=== PATIENT | female | born 1985 | race Caucasian/White ===

== ENCOUNTER 2017-10-09 20:40 | Emergency (ER) | payer SELFPAY ==
[2017-10-09 20:59] VITALS: RESP 22; TEMP 99.4
[2017-10-09] MEDS ORDERED: Albuterol 0.083% Inhal Sol (2.5 mg/3 mL) UD INH STA (21:18)
[2017-10-09] MEDS ORDERED: Albuterol-Ipratrop 3 mg / 0.5 (3 ml) UD INH STA ×3 (21:18→22:15)
[2017-10-09] MEDS ORDERED: Albuterol 0.083% Inhal Sol (2.5 mg/3 mL) UD ONE (21:24)
[2017-10-09] MEDS ORDERED: Albuterol-Ipratrop 3 mg / 0.5 (3 ml) UD ONE ×2 (21:25→22:21)
[2017-10-09 21:33] LABS: BASO # 0.1 K/uL (0.0-0.2); BASO % 0.7 % (0.0-2.0); EOS # 0.4 K/uL (0.0-0.7); EOS % 4.2 % (0.0-4.0); HEMOGLOBIN 13.7 g/dL (12.0-16.0); LYMPH # 1.1 K/uL (1.0-4.3); LYMPH % 12.5 % (20.0-40.0); MEAN CORPUSCULAR HEMOGLOBIN 30.8 pg (27.0-31.0); MEAN CORPUSCULAR HGB CONC 34.6 g/dL (33.0-37.0); MEAN PLATELET VOLUME 8.8 fl (7.2-11.7); MONO # 0.8 K/uL (0.0-0.8); MONO % 9.6 % (0.0-10.0); NEUT # 6.2 K/uL (1.8-7.0); RBC 4.44 Mil/uL (3.80-5.20); RED CELL DISTRIBUTION WIDTH 13.5 % (11.5-14.5); WHITE BLOOD COUNT 8.5 K/uL (4.8-10.8)
[2017-10-09 21:42] LABS: BLOOD UREA NITROGEN 8 mg/dl (7-17); CALCIUM 9.5 mg/dL (8.4-10.2); GFR AFRICAN-AMERICAN > 60; GFR NON-AFRICAN AMERICAN > 60
--- NOTE | 2017-10-09 22:36 | ED PDOC ---
HPI: SOB/CHF/COPD Time Seen by Provider: 10/09/17 20:58 Chief Complaint (Nursing): Shortness Of Breath Chief Complaint (Provider): Shortness Of Breath History Per: Patient History/Exam Limitations: no limitations Onset/Duration Of Symptoms: Days Current Symptoms Are (Timing): Still Present Additional Complaint(s): Destiny Yusuf is a 31 year old female with a past medical history of asthma who is presenting to the ED with complaints of worsening shortness of breath onset yesterday. Patient states that she used Albuterol at home around 7 pm with no relief. Patient reports that these symptoms feel similar to past episodes and that she has a history of admissions for asthma, but no intubations. Last admission was 6 years ago and last steroid use was 2 months ago. She denies any fever, chest pain, ear pain, throat pain, abdominal pain, recent travel, N/V/D, sick contacts. She does indicate that she has seasonal allergies which exacerbate her asthma. LNMP: 09/27/17 PMD: [place] Past Medical History Reviewed: Historical Data, Nursing Documentation, Vital Signs Vital Signs: Last Vital Signs Temp 99.4 F 10/09/17 20:56 Pulse 112 H 10/10/17 04:42 Resp 22 10/09/17 20:56 BP 129/85 10/09/17 23:48 Pulse Ox 96 10/10/17 04:42 - Medical History PMH: Asthma - Surgical History Surgical History: Tonsillectomy (and adenoids) - Family History Family History: States: Unknown Family Hx - Social History Current smoker - smoking cessation education provided: Yes (1-2/day) Alcohol: Social Drugs: Cannabis (2-4x/month) - Home Medications Home Medications: Ambulatory Orders Medication Instructions Recorded Nitrofurantoin Macrocrystals 100 mg PO BID #14 cap 09/24/15 [Macrobid] Albuterol Sulfate [Ventolin Hfa] 1 puff IH Q4 #1 each 10/09/17 Prednisone [Deltasone] 40 mg PO DAILY #10 tablet 10/09/17 Promethazine/Dextromethorphan 5 ml PO Q6 PRN #150 ml 10/09/17 [Promethazine-Dm Syrup] - Allergies Allergies/Adverse Reactions: Allergies Allergy/AdvReac Type Severity Reaction Status Date / Time No Known Allergies Allergy Verified 09/24/15 18:19 Review of Systems ROS Statement: Except As Marked, All Systems Reviewed And Found Negative Constitutional: Negative for: Fever ENT: Negative for: Ear Pain, Throat Pain Cardiovascular: Negative for: Chest Pain Respiratory: Positive for: Shortness of Breath Gastrointestinal: Negative for: Nausea, Vomiting Physical Exam - Reviewed Nursing Documentation Reviewed: Yes Vital Signs Reviewed: Yes - Physical Exam Appears: Positive for: Well, Non-toxic Head Exam: Positive for: ATRAUMATIC, NORMOCEPHALIC Skin: Positive for: Normal Color, Warm, DRY ENT: Positive for: Pharynx Is (clear, uvula midline), TM Is/Are (nonbulging, nonerythematous bilaterally). Negative for: Pharyngeal Erythema, Other (nasal flaring) Neck: Positive for: Painless ROM, Supple Cardiovascular/Chest: Positive for: Regular Rate, Rhythm. Negative for: Murmur Respiratory: Positive for: Decreased Breath Sounds (bilaterally), Wheezing ( inspiratory and expiratory), Respiratory Distress (mild; labored breathing), Other (speaking full sentences). Negative for: Stridor Gastrointestinal/Abdominal: Positive for: Soft. Negative for: Tenderness, Mass , Distended, Guarding Back: Negative for: L CVA Tenderness, R CVA Tenderness Extremity: Positive for: Normal ROM. Negative for: Calf Tenderness, Deformity Neurologic/Psych: Positive for: Alert, Oriented (x3), Gait (steady in ED). Negative for: Motor/Sensory Deficits, Aphasia, Facial Droop - Laboratory Results Result Diagrams: 10/09/17 21:29 10/09/17 21:29 Urine POC: Negative - ECG ECG Rhythm: Positive for: Normal QRS, Normal ST Segment, Sinus Tachycardia Interpretation Of ECG: QTC 439 Rate: 112 O2 Sat by Pulse Oximetry: 96 (RA) Pulse Ox Interpretation: Normal Medical Decision Making Medical Decision Making: Time: 21:29 Impression: shortness of breath, asthma exacerbation Plan: --BMP --Magnesium level --Urine --CBC --Albuterol 2.5 mg INH x1 --Duoneb 3 ml INH x3 --Solu-Medrol --Peak Flow Pre/Post Tx 2325 On re-evaluation, patient resting comfortably and reports resolution of shortness of breath and dyspnea. Patient states she feels much improved. Patient remains awake, alert, oriented x 3 and is laying in bed comfortably. On exam, neck is supple, lungs are clear to auscultation with resolution of wheezing, abdomen is soft and non tender, heart is at regular rate and rhythm. Respirations even and non-labored, patient speaking in full sentences. Repeat neuro shows no focal findings. Repeat HR: 97. VSS, stable for discharge. Based on history, exam, and diagnostic results plan will be for discharge home with outpatient follow up. Advised to follow up with primary care physician in 1-2 days without fail. Advised to take medication as prescribed. Return to the emergency room at any time for any new or worsening symptoms. Patient states she fully agrees with and understands discharge instructions. States that she agrees with the plan and disposition. Verbalized and repeated discharge instructions and plan. I have given the patient opportunity to ask any additional questions. Scribe Attestation: Documented by Ca Ribera, acting as a scribe for Brianda Ratliff PA-C. Provider Scribe Attestation: All medical record entries made by the Scribe were at my direction and personally dictated by me. I have reviewed the chart and agree that the record accurately reflects my personal performance of the history, physical exam, medical decision making, and the department course for this patient. I have also personally directed, reviewed, and agree with the discharge instructions and disposition. Disposition - Clinical Impression Clinical Impression: Asthma exacerbation, Shortness of breath - Patient ED Disposition Is Patient to be Admitted: No Counseled Patient/Family Regarding: Diagnosis, Need For Followup, Rx Given, Smoking Cessation - Disposition Disposition: Routine/Home Disposition Time: 23:29 Condition: STABLE Additional Instructions: FOLLOW UP WITH PMD IN 1-2 DAYS WITHOUT FAIL. RETURN TO ED WITH ANY NEW OR WORSENING SYMPTOMS. Prescriptions: Albuterol Sulfate [Ventolin Hfa] 1 puff IH Q4 #1 each Prednisone [Deltasone] 40 mg PO DAILY #10 tablet Promethazine/Dextromethorphan [Promethazine-Dm Syrup] 5 ml PO Q6 PRN #150 ml PRN Reason: Cough Instructions: Asthma in Adults, Avoiding Asthma Triggers, Inhalers, Shortness of Breath (Dyspnea) Forms: [id number] (Mexican) Print Language: ECUADOREAN - POA Present On Arrival: None Results - Lab Results Lab Results: 10/09/17 10/09/17 21:29 21:29 WBC 8.5 RBC 4.44 Hgb 13.7 Hct 39.5 MCV 89.0 D MCH 30.8 MCHC 34.6 RDW 13.5 Plt Count 217 MPV 8.8 Neut % (Auto) 73.0 Lymph % (Auto) 12.5 L Prentiss % (Auto) 9.6 Eos % (Auto) 4.2 H Baso % (Auto) 0.7 Neut # (Auto) 6.2 Lymph # (Auto) 1.1 Prentiss # (Auto) 0.8 Eos # (Auto) 0.4 Baso # (Auto) 0.1 Sodium 141 Potassium 4.1 Chloride 103 Carbon Dioxide 26 Anion Gap 16 BUN 8 Creatinine 0.8 Est GFR ( Amer) > 60 Est GFR (Non-Af Amer) > 60 Random Glucose 107 H Calcium 9.5 Magnesium 1.9
[2017-10-09 23:57] VITALS: BP 129/85
[2017-10-10 04:37] VITALS: PULSE 112; O2SAT 96
== END 2017-10-09 23:58 | disposition home or self-care (01) ==
LOC: H.ER 20:40
DX: J45.901 Unspecified asthma with (acute) exacerbation (principal); F17.200 Nicotine dependence, unspecified, uncomplicated; J44.9 Chronic obstructive pulmonary disease, unspecified
CPT/HCPCS: 80048; 81025; 83735; 85025; 96374; 99283; J2930